=== PATIENT | male | born 1960 | race Caucasian/White ===

== ENCOUNTER 2018-10-30 06:45 | Day surgery (SDC) | payer BC ==
[2018-10-27 09:59] LABS: BASOPHILS # (AUTO) 0.1 K/uL (0.0-0.2); BASOPHILS % (AUTO) 0.4 % (0.0-2.0); BILIRUBIN,URINE NEGATIVE (NEGATIVE); BLOOD, URINE NEGATIVE (NEGATIVE); CLARITY/URINE SL HAZY (CLEAR); COLOR,URINE YELLOW (YELLOW); EOSINOPHILS # (AUTO) 0.4 K/uL (0.0-0.4); GLUCOSE,URINE NEGATIVE (NEGATIVE); HEMATOCRIT 47.1 % (36-54); HEMOGLOBIN 15.6 g/dL (14.0-18.0); KETONES,URINE NEGATIVE (NEGATIVE); LEUKOCYTE ESTERASE ,URINE NEGATIVE (NEGATIVE); LYMPHOCYTES # (AUTO) 3.5 K/uL (1.0-5.5); LYMPHOCYTES % (AUTO) 29.4 % (20.5-51.5); MEAN CORPUSCULAR HEMOGLOBIN 33 pg (27-31); MEAN CORPUSCULAR HGB CONC 33 % (32-36); MEAN CORPUSCULAR VOLUME 98 fL (79.0-98.0); MONOCYTES # (AUTO) 1.1 K/uL (0.0-1.0); MONOCYTES % (AUTO) 9.2 % (1.7-9.3); NEUTROPHILS # (AUTO) 6.9 K/uL (1.8-7.7); NITRITE, URINE NEGATIVE (NEGATIVE); PH,URINE 5.5 (5.0-8.0); PLATELET COUNT (AUTO) 332 K/uL (130-430); PROTEIN URINE NEGATIVE (NEGATIVE); RED BLOOD CELL COUNT(AUTO) 4.79 MIL/uL (4.2-6.2); RED CELL DISTRIBUTION WIDTH 14.3 % (9.0-15.0); UROBILINOGEN,URINE 0.2 (0.2-1.0); WHITE BLOOD COUNT (AUTO) 11.9 K/uL (4.8-10.8)
[2018-10-27 10:14] LABS: CALCIUM 9.5 mg/dL (8.4-11.0); CREATININE 0.77 mg/dL (0.55-1.30); POTASSIUM 3.9 mmol/L (3.5-5.1)
[2018-10-27 10:18] LABS: INR 0.9 (0.80-1.20); PROTHROMBIN TIME 9.3 SECS (9.5-12.5)
[~2018-10-30] VITALS: Ht 177.8 cm; Wt 68.0 kg
[2018-10-30] MEDS ORDERED: POLYMYXIN 500,000/BACIT.10,000 UNITS in NS IRR 1 L IR ONE (07:29)
[2018-10-30] MEDS ORDERED: PROPOFOL 200MG/ 20ML VIAL (DIPRIVAN) IV ONE (08:20)
[2018-10-30] MEDS ORDERED: ONDANSETRON HCL 4 MG/2 ML VIAL IVP ONE (08:20)
[2018-10-30] MEDS ORDERED: NS IRRIG SOLN 1000 ML IR ONE (08:20)
[2018-10-30] MEDS ORDERED: MIDAZOLAM HCL 5 MG/5 ML VIAL IVP ONE (08:20)
[2018-10-30] MEDS ORDERED: BUPIVACAINE /EPINEPHRINE/PF 0.25% 30 ML VIAL INJ ONE (08:20)
[2018-10-30] MEDS ORDERED: SEVOFLURANE 15 MIN GAS INH ONE (08:20)
[2018-10-30] MEDS ORDERED: ROCURONIUM BROMIDE 10 MG/ML (ZEMURON) IV ONE (08:20)
[2018-10-30] MEDS ORDERED: GLYCOPYRROLATE 0.2 MG/ML VIAL IJ ONE (08:20)
[2018-10-30] MEDS ORDERED: NEOSTIGMINE METHYLSULFATE 1 MG/ML, 10 ML VIAL IVP ONE (08:20)
[2018-10-30] MEDS ORDERED: LR 1,000 ML IV.SOLN IV ONE (08:20)
[2018-10-30] MEDS ORDERED: fentaNYL CITRATE 250 MCG/5 ML AMP IV ONE (08:20)
[2018-10-30] MEDS ORDERED: LR 1,000 ML IV SCH (09:12)
[2018-10-30] MEDS ORDERED: METOCLOPRAMIDE HCL 10 MG/2 ML VIAL IVP PRN (09:15)
[2018-10-30] MEDS ORDERED: MORPHINE 4 MG/ML INJ. SYRINGE IVP PRN ×3 (09:15)
[2018-10-30] MEDS ORDERED: MORPHINE 4 MG/ML INJ. SYRINGE ONE (09:56)
[2018-10-30] MEDS ORDERED: HYDROmorphone 2 MG/ML VIAL IVP ONE (10:00)
[2018-10-30] MEDS ORDERED: MIDAZOLAM HCL 2 MG/2 ML VIAL (VERSED) IVP ONE (10:00)
[2018-10-30] MEDS ORDERED: MIDAZOLAM HCL 2 MG/2 ML VIAL (VERSED) ONE (10:10)
[2018-10-30] MEDS ORDERED: HYDROmorphone 2 MG/ML VIAL ONE (10:11)
[2018-10-30 12:55] VITALS: BP_SYST 150
== END 2018-10-30 11:40 | disposition home or self-care (01) ==
LOC: SDS 06:45 → SMU 06:45 → SDS 11:40
PROVIDERS: ATTEND Orthopaedic Surgery
DX: M75.101 Unspecified rotator cuff tear or rupture of right shoulder, not specified as traumatic (principal); Z87.81 Personal history of (healed) traumatic fracture; Z98.890 Other specified postprocedural states; F17.200 Nicotine dependence, unspecified, uncomplicated; G62.9 Polyneuropathy, unspecified; Z79.01 Long term (current) use of anticoagulants; I44.4 Left anterior fascicular block
CPT/HCPCS: 23120; 23130; 23412; 36415; 71046; 80048; 81003; 85025; 85610; 85730; 93005; A4565; C1713; J1170; J2250; J2270; J2405; J2704; J2710; J3010; J3465; J3490 ×2; J7120